=== PATIENT | male | born 1985 | race Caucasian/White ===

== ENCOUNTER 2017-01-09 14:34 | Emergency (ER) | payer MEDICAID ==
[~2017-01-09] VITALS: Ht 175.3 cm; Wt 58.7 kg
[2017-01-09 17:44] VITALS: BP 122/69
== END 2017-01-09 17:44 | disposition home or self-care (01) ==
LOC: ED 14:34
DX: S02.2XXA Fracture of nasal bones, initial encounter for closed fracture (principal); S13.4XXA Sprain of ligaments of cervical spine, initial encounter; K42.9 Umbilical hernia without obstruction or gangrene; V49.9XXA Car occupant (driver) (passenger) injured in unspecified traffic accident, initial encounter; Y93.89 Activity, other specified; Y99.8 Other external cause status; Y92.89 Other specified places as the place of occurrence of the external cause
CPT/HCPCS: 90715

== ENCOUNTER 2017-01-30 19:25 | Emergency (ER) | payer MEDICAID ==
[2017-01-30 22:42] LABS: BASOPHIL % 0.6 % (0-2); PLATELET COUNT 221 x10^3mcL (130-400); RED CELL DISTRIBUTION WIDTH 13.3 % (11.5-14.5)
[2017-01-30 22:59] LABS: CALCIUM 8.9 mg/dL (8.5-10.1); CARBON DIOXIDE 31.8 mmol/L (21-32); CHLORIDE SERUM 102 mmol/L (98-107); CREATININE SERUM 0.8 mg/dL (0.7-1.3); GFR1 > 60 mL/min; GLUCOSE SERUM 97 mg/dL (74-106); POTASSIUM SERUM 3.4 mmol/L (3.5-5.1); SODIUM SERUM 139 mmol/L (136-145)
[2017-01-30 23:03] LABS: ALKALINE PHOSPHATASE 71 U/L (46-116); ALT/SGPT 29 U/L (16-63); AMYLASE 52 U/L (25-115); AST/SGOT 19 U/L (15-37); BILIRUBIN TOTAL 0.71 mg/dL (0.20-1.00); LIPASE 120 IU/L (73-393); TOTAL PROTEIN, SERUM 7.7 g/dL (6.4-8.2)
[2017-01-30 23:50] LABS: microscopic required? NO
[2017-01-30 23:54] VITALS: BP 143/99
[2017-01-30 23:55] LABS: urine erythrocyte NEGATIVE (NEGATIVE)
== END 2017-01-30 23:54 | disposition home or self-care (01) ==
LOC: ED 19:25
PROVIDERS: Emergency Medicine
DX: R10.33 Periumbilical pain (principal); R10.9 Unspecified abdominal pain

== ENCOUNTER 2017-12-14 12:45 | Emergency (ER) | payer BC ==
[~2017-12-14] VITALS: Ht 180.3 cm; Wt 57.6 kg
[2017-12-14 12:55] VITALS: Ht 180.3 cm; Wt 57.6 kg
[2017-12-14 13:32] LABS: BASOPHIL % 0.3 % (0-2); PLATELET COUNT 239 x10^3mcL (130-400); RED CELL DISTRIBUTION WIDTH 13.6 % (11.5-14.5)
[2017-12-14 13:56] LABS: CALCIUM 9.4 mg/dL (8.5-10.1); CARBON DIOXIDE 26.4 mmol/L (21-32); CHLORIDE SERUM 102 mmol/L (98-107); CREATININE SERUM 0.8 mg/dL (0.7-1.3); GFR1 > 60 mL/min; GLUCOSE SERUM 99 mg/dL (74-106); POTASSIUM SERUM 4.1 mmol/L (3.5-5.1); SODIUM SERUM 139 mmol/L (136-145)
[2017-12-14 14:08] LABS: ALBUMIN 4.5 g/dL (3.4-5.0); ALKALINE PHOSPHATASE 61 U/L (46-116); ALT/SGPT 27 U/L (16-63); AMYLASE 72 U/L (25-115); AST/SGOT 13 U/L (15-37); BILIRUBIN TOTAL 1.1 mg/dL (0.20-1.00); CHOLESTEROL 165 mg/dL (<200); LIPASE 109 IU/L (73-393); MAGNESIUM 2.2 mg/dL (1.8-2.4); TOTAL PROTEIN, SERUM 8.1 g/dL (6.4-8.2)
[2017-12-14 14:10] LABS: microscopic required? NO
[2017-12-14 14:11] LABS: HDL CHOLESTEROL 72 mg/dL (40-60)
[2017-12-14 14:38] LABS: urine erythrocyte NEGATIVE (NEGATIVE)
[2017-12-14 14:55] LABS: AMPHETAMINE QUAL UR NONE DETECTED (NEG <=1000)
[2017-12-14 15:41] VITALS: BP 113/68
== END 2017-12-14 15:41 | disposition home or self-care (01) ==
LOC: ED 12:45
PROVIDERS: Emergency Medicine
DX: M67.472 Ganglion, left ankle and foot (principal); R42 Dizziness and giddiness; R53.1 Weakness
CPT/HCPCS: 82962; 83880; Q0092